=== PATIENT | male | born 2000 | race Two or more races ===

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

== ENCOUNTER 2018-02-12 18:05 | Emergency (ER) | payer MEDICAID, OTHER ==
[~2018-02-12] VITALS: Ht 162.6 cm; Wt 97.5 kg
[2018-02-12 19:41] VITALS: BP 135/84
[2018-02-12] MEDS ORDERED: ACETAMINOPHEN 500 MG TAB PO ONE (20:15)
[2018-02-12] MEDS ORDERED: IBUPROFEN 800 MG TAB PO ONE (20:15)
== END 2018-02-12 21:13 | disposition home or self-care (01) ==
LOC: ER 18:10
DX: S00.83XA Contusion of other part of head, initial encounter (principal); Y04.2XXA Assault by strike against or bumped into by another person, initial encounter; Y93.C1 Activity, computer keyboarding; Y92.89 Other specified places as the place of occurrence of the external cause; Y99.8 Other external cause status
CPT/HCPCS: 70450; 70486